=== PATIENT | male | born 1965 | race Caucasian/White ===

== ENCOUNTER 2022-09-16 14:56 | Emergency (ER) | payer OTHER, SELFPAY ==
[2022-09-16 17:05] VITALS: BP 156/88; PULSE 63; RESP 18; TEMP 36.8; O2SAT 98; BMI 22.8
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
[2022-09-16 19:07] VITALS: BP 156/88; PULSE 63; RESP 18; TEMP 36.8
== END 2022-09-16 19:09 | disposition home or self-care (01) ==
PROVIDERS: Emergency Provider Nurse Practitioner
DX: S61.411A Laceration without foreign body of right hand, initial encounter (principal); R07.81 Pleurodynia; J34.89 Other specified disorders of nose and nasal sinuses; M25.531 Pain in right wrist; Y04.2XXA Assault by strike against or bumped into by another person, initial encounter
CPT/HCPCS: G0168; 70160; 71101; 73110; 73130; 99213; G0463